=== PATIENT | male | born 2000 | race Caucasian/White ===

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

== ENCOUNTER 2023-09-26 14:25 | Emergency (ER) | payer OTHER, BC, SELFPAY ==
[2023-09-26 14:28] VITALS: BP 118/67; PULSE 67; RESP 16; TEMP 36.8; O2SAT 100
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
== END 2023-09-26 16:18 | disposition home or self-care (01) ==
PROVIDERS: Emergency Provider Physician Assistant; PCP Nurse Practitioner
DX: T54.3X1A Toxic effect of corrosive alkalis and alkali-like substances, accidental (unintentional), initial encounter (principal); T25.512A Corrosion of first degree of left ankle, initial encounter; T25.511A Corrosion of first degree of right ankle, initial encounter; T32.0 Corrosions involving less than 10% of body surface
CPT/HCPCS: 99282